=== PATIENT | female | born 1990 | race Caucasian/White ===

== ENCOUNTER 2018-12-01 13:59 | Inpatient (IN) | payer OTHER ==
[~2018-12-01] VITALS: Ht 170.2 cm; Wt 71.3 kg
[2018-12-01 14:53] LABS: BASOPHILS ABSOLUTE AUTO 0.08 K/mm3 (0.00-0.23); BASOPHILS PERCENT AUTO 1 % (0-2); EOSINOPHILS ABSOLUTE AUTO 0.03 K/mm3 (0.00-0.68); EOSINOPHILS PERCENT AUTO 0 % (0-6); Hematocrit 42.7 % (33.0-51.0); Hemoglobin 14.1 g/dL (11.5-16.0); IMMATURE GRAN ABSOLUTE AUTO 0.12 K/mm3 (0.00-0.10); IMMATURE GRAN PERCENT AUTO 1 % (0-1); LYMPHOCYTES ABSOLUTE AUTO 1.13 K/mm3 (0.84-5.20); LYMPHOCYTES PERCENT AUTO 7 % (21-46); MONOCYTES ABSOLUTE AUTO 1.06 K/mm3 (0.16-1.47); MONOCYTES PERCENT AUTO 7 % (4-13); Mean Corpuscular HGB 33.5 pg (26.0-34.0); Mean Corpuscular Volume 101 fL (80-100); Mean Platelet Volume 9.4 fL (9.1-12.4); NEUTROPHILS ABSOLUTE AUTO 13.24 K/mm3 (1.96-9.15); NEUTROPHILS PERCENT AUTO 85 % (41-73); Platelet Count 254 K/mm3 (150-400); RDW Coefficient Variation 12.2 % (11.7-14.2); RDW Standard Deviation 46.5 fL (35.1-46.3); Red Blood Cell Count 4.21 M/mm3 (3.80-5.20); White Blood Cell Count 15.66 K/mm3 (4.00-11.30)
[2018-12-01 15:07] LABS: Beta HCG, Quantitative, Serum <1 mIU/mL (0-3); Ethanol (Alcohol), Blood, Med 7 mg/dL; Magnesium, Blood 1.9 mg/dL (1.6-2.4)
[2018-12-01 15:14] LABS: Base Excess Venous -0.5 mmol/L; Bicarbonate Venous 23.4 mmol/L (24.0-30.0); PCO2 Venous 41.6 mmHg (38-42); PO2 Venous 40.7 mmHg (38-42); pH Blood Venous 7.38 (7.34-7.37)
[2018-12-01 15:28] LABS: Alanine Aminotransfer (ALT/SGP 31 U/L (12-78); Albumin, Blood 3.5 g/dL (3.4-5.0); Albumin/Globulin Ratio 0.9 (0.8-1.8); Alk Phos 68 U/L (50-136); Anion Gap 6 mmol/L (6-16); Aspartate Aminotrans (AST/SGOT 36 U/L (12-37); Bilirubin, Total 0.4 mg/dL (0.1-1.0); Blood Urea Nitrogen 10 mg/dL (8-24); Bun/Creatinine Ratio 19.3 (12.0-20.0); CO2, Blood 21 mmol/L (21-32); Calcium, Blood 8.4 mg/dL (8.5-10.1); Chloride, Blood 110 mmol/L (98-108); Creatinine, Blood 0.52 mg/dL (0.40-1.00); Glomerular Filtration Rate >60 (60-); Glucose, Blood 108 mg/dL (70-99); Potassium, Blood 4.5 mmol/L (3.5-5.5); Sodium, Blood 137 mmol/L (136-145); Total Protein, Blood 7.5 g/dL (6.4-8.2)
[2018-12-01 15:44] LABS: International Normalized Ratio 0.9; Prothrombin Time Results 9.6 Sec (9.7-11.5)
--- NOTE | 2018-12-01 21:20 | NUR ---
START OF SHIFT: REPORT FROM ABHILASH RN. PT AWAKENED EASILY TO RN'S AT BEDSIDE. PT RESPONDED APPROPRIATELY AND VERBALIZED APPRECIATION FOR CARE. VSS. PT DROWSY. MEDICATIONS REVIEWED. SEIZURE PADS IN PLACE. PT LATER WITH MINIMAL ASSIST UP TO [facility] [place]OLERATED WELL. CIWA WHEN UP WITH PT C/O, "SHAKES AND HEARING VOICES", PT MEDICATED WITH LIBRIUM. PT C/O PAIN TO ABDOMEN T/O SHIFT THUS FAR AND HAS BEEN MEDICATED WITH FENTANYL PER ORDERS. PT'S FRIEND TO BEDSIDE AT 2114 AND WAS VERY FRIENDLY AND GENUINELY CONCERNED. PT RESPONDED WELL TO FRIEND AT BEDSIDE AND WAS APPROPRIATE. WILL CONTINUE TO MONITOR. CALL WITHIN REACH.
[2018-12-02 03:23] LABS: BASOPHILS ABSOLUTE AUTO 0.04 K/mm3 (0.00-0.23); BASOPHILS PERCENT AUTO 0 % (0-2); EOSINOPHILS ABSOLUTE AUTO 0.04 K/mm3 (0.00-0.68); EOSINOPHILS PERCENT AUTO 0 % (0-6); IMMATURE GRAN ABSOLUTE AUTO 0.04 K/mm3 (0.00-0.10); IMMATURE GRAN PERCENT AUTO 0 % (0-1); LYMPHOCYTES ABSOLUTE AUTO 1.26 K/mm3 (0.84-5.20); LYMPHOCYTES PERCENT AUTO 11 % (21-46); MONOCYTES ABSOLUTE AUTO 0.93 K/mm3 (0.16-1.47); MONOCYTES PERCENT AUTO 8 % (4-13); Mean Corpuscular HGB 33.4 pg (26.0-34.0); Mean Corpuscular HGB Conc 33.3 g/dL (31.5-36.5); Mean Corpuscular Volume 100 fL (80-100); Mean Platelet Volume 9.2 fL (9.1-12.4); NEUTROPHILS ABSOLUTE AUTO 9.18 K/mm3 (1.96-9.15); NEUTROPHILS PERCENT AUTO 80 % (41-73); Platelet Count 207 K/mm3 (150-400); RDW Coefficient Variation 12.1 % (11.7-14.2); RDW Standard Deviation 44.3 fL (35.1-46.3); Red Blood Cell Count 3.89 M/mm3 (3.80-5.20); White Blood Cell Count 11.49 K/mm3 (4.00-11.30)
[2018-12-02 03:41] LABS: Anion Gap 9 mmol/L (6-16); Blood Urea Nitrogen 8 mg/dL (8-24); Bun/Creatinine Ratio 18.7 (12.0-20.0); CO2, Blood 25 mmol/L (21-32); Calcium, Blood 7.9 mg/dL (8.5-10.1); Chloride, Blood 104 mmol/L (98-108); Creatinine, Blood 0.43 mg/dL (0.40-1.00); Glomerular Filtration Rate >60 (60-); Glucose, Blood 114 mg/dL (70-99); Magnesium, Blood 2.1 mg/dL (1.6-2.4); Phosphorus, Blood 3.4 mg/dL (2.5-4.9); Potassium, Blood 3.6 mmol/L (3.5-5.5); Sodium, Blood 138 mmol/L (136-145)
--- NOTE | 2018-12-02 04:22 | NUR ---
PT AWAKENED AT APPRX 0315 DURING LAB DRAW. PT STATED WAS BEGINNING TO FEEL SHAKEY AND HEARING THINGS AGAIN. CIWA APPRX 10. PT ACTUALLY ABLE TO ADD SERIAL NUMBERS AND RECALL DATE. PT MEDICATED WITH LIBRIUM 25mg INSTEAD OF 50. PT CURRENTLY SLEEPING QUIETLY, VSS.
--- NOTE | 2018-12-02 07:27 | NUR ---
ASSUMED CARE REPORT FROM SVETA Oneill RN. PATIENT A & O ASSISTED TO TOILET FOR UNMEASURED VOID. SLIGHTLY UNSTEADY, BUT AMBULATED WITH VERY LITTLE ASSISTANCE. IS REQUESTING ATIVAN FOR TREMORS AND PAIN MED FOR 7/10 STOMACH PAIN. WASHED HER FACE AND HANDS, BUT DECLINED TO BRUSH HER TEETH AT THIS TIME.
--- NOTE | 2018-12-02 07:53 | NUR ---
MD VISIT DR. LUIS IN
--- NOTE | 2018-12-02 08:00 | NUR ---
FENTANYL 25 MCG IV GIVEN FOR 8/10 STOMACH PAIN. LIBRIUM FOR CIWA 7. NICOTINE PATCH PLACED RIGHT SHOULDER WITH INSTRUCTIONS NOT TO SMOKE WHILE IN PLACE AND PROPER DISPOSAL WHEN TAKEN OFF. WILL CONTINUE TO MONITOR FOR PAIN AND CIWA SYMPTOMS
--- NOTE | 2018-12-02 08:10 | NUR ---
STATUS CHANGED TO MED/NO TELE
--- NOTE | 2018-12-02 09:23 | NUR ---
REPORT GIVEN TO GEOVANY Guaman RN. PT BEING TX'D TO 361
--- NOTE | 2018-12-02 09:40 | NUR ---
PT TO ROOM [facility] ICU. QUITE PLEASANT COOP A/O. SOME PAIN IN FLANK. IS NPO FOR PANCREATITIS. WATCHING CWA. WAS MEDICATED PRIOR TO COMING. WILL CONTINUE TO MONITOR. BED IN LOW POSITION, CALL LITE IN REACH. CALLS APPROP
--- NOTE | 2018-12-02 13:51 | NUR ---
PT C/O PAIN AND NEEDING LIBRIUM. LIGHT SHAKES, SLIGHT BEEDS SWEAT ON FOREHEAD, HALUCINATIONS BOTH AUDITORY AND VISUAL. ADDS NUMBERS WELL. MEDICATED. PT MORE RELAXED AFTER FENTANYL.
--- NOTE | 2018-12-02 18:30 | NUR ---
PT QUITE PLEASANT COOP A/O. SOME PAIN ABD. CONTROLLED WITH AVAIL MEDS. RUNNING 8-10 CWA. MED PER EMAR. HAD SOME FRIENDS COME IN TODAY. SOME TREMORS REMAIN. LIGHT SWEATS. SOME HALLUCINATIONS. MANAGED WITH AVAIL MEDS. EMCOURAGED TO CONTINUE WITH ETOH RECOVERY AND STAY OFF ETOH. STATES MAY BE ABLE TO GET TO REHAB AND MOVE FOREWARD IN LIVE/ HAS DOG SHE CARES FOR AND WANTS TO BE THERE FOR. BED IN LOW POSITION, CALL LITE IN REACH, CALLS APPROP
[2018-12-03 05:00] LABS: BASOPHILS ABSOLUTE AUTO 0.06 K/mm3 (0.00-0.23); BASOPHILS PERCENT AUTO 1 % (0-2); EOSINOPHILS ABSOLUTE AUTO 0.13 K/mm3 (0.00-0.68); EOSINOPHILS PERCENT AUTO 2 % (0-6); Hematocrit 36.2 % (33.0-51.0); Hemoglobin 11.7 g/dL (11.5-16.0); IMMATURE GRAN ABSOLUTE AUTO 0.03 K/mm3 (0.00-0.10); IMMATURE GRAN PERCENT AUTO 0 % (0-1); LYMPHOCYTES ABSOLUTE AUTO 1.36 K/mm3 (0.84-5.20); LYMPHOCYTES PERCENT AUTO 18 % (21-46); MONOCYTES ABSOLUTE AUTO 0.83 K/mm3 (0.16-1.47); MONOCYTES PERCENT AUTO 11 % (4-13); Mean Corpuscular HGB 32.4 pg (26.0-34.0); Mean Corpuscular HGB Conc 32.3 g/dL (31.5-36.5); Mean Corpuscular Volume 100 fL (80-100); Mean Platelet Volume 9.4 fL (9.1-12.4); NEUTROPHILS ABSOLUTE AUTO 5.08 K/mm3 (1.96-9.15); NEUTROPHILS PERCENT AUTO 68 % (41-73); Platelet Count 189 K/mm3 (150-400); RDW Coefficient Variation 12.1 % (11.7-14.2); RDW Standard Deviation 44.6 fL (35.1-46.3); Red Blood Cell Count 3.61 M/mm3 (3.80-5.20); White Blood Cell Count 7.49 K/mm3 (4.00-11.30)
[2018-12-03 05:50] LABS: Anion Gap 6 mmol/L (6-16); Blood Urea Nitrogen 4 mg/dL (8-24); Bun/Creatinine Ratio 8.8 (12.0-20.0); CO2, Blood 25 mmol/L (21-32); Chloride, Blood 110 mmol/L (98-108); Creatinine, Blood 0.46 mg/dL (0.40-1.00); Glomerular Filtration Rate >60 (60-); Glucose, Blood 76 mg/dL (70-99); Potassium, Blood 3.3 mmol/L (3.5-5.5); Sodium, Blood 141 mmol/L (136-145)
--- NOTE | 2018-12-03 06:29 | NUR ---
PT without seizure activity. Continues with acute abd pain from pancreatitis decreased by fentanyl 25 mcg Q 4 hours. PT medicated multiple times with librium for ETOH detoxscore 12 or 13. Hx of drinking 1/2 gallon vodka daily and prior treatment for alcoholism. Counseled on need for cessation and also encouraged tobacco cessation. PT expresses desire for inpt ETOH rehab on discharge. Will put in referral about request for inpt tx.
--- NOTE | 2018-12-03 17:18 | NUR ---
SHIFT SUMMARY NO ACUTE CHANGES. PATIENT MEDICATED X2 FOR PAIN AND X2 FOR WITHDRAWAL SYMPTOMS. PATIENT DENIES NAUSEA AND SHORTNESS OF BREATH. TOLERATING CLEAR LIQUID DIET WELL. UP SBA TO BR. CALL LIGHT IN REACH.
--- NOTE | 2018-12-04 02:13 | NUR ---
PT REQUESTED AND RECIEVED PAIN MEDS AND LIBRIUM FOR WITHDRAWALS. PT REPORTS ABD PAIN OF AN 8, HOWEVER, HER FACIAL NUMBER LOOKS LIKE A 1 OR A 0. NO GAURDING, GRIMACING OR PHYSICAL SIGNS OF PAIN. NO VISIBLE SWEATING, TREMORS, ANXIETY, NAUSEA, OR AGITATION. HOWEVER, WHEN ASKED PT WILL REPORT THAT SHE HAS EVERY SYMPTOM THAT YOU ASK WELL SAY THAT SHE HAS A HEADACHE THAT SHE DID NOT REPORT WHEN ASKED WERE HER PAIN WAS FOR THE DOCUMENTATION OF THE FENTANYL. I DOCUMENTED WHAT I COULD PHYSICALLY SEE OR NOT SEE BUT WITH THE HALLUCINATIONS I REPORTED WHAT THE PATIENT STATED. PT ALSO ASKS FOR BOTH OF THESE MEDS PRETTY MUCH EXACTLY EVERY 4 HOURS JUST ABOUT TO THE MINUTE. WILL UPDATE PRIMARY RN AND THEY WILL CONTINUE TO MONITOR. NO OTHER APPARENT SIGNS OF DISTRESS. DENIES NEED FOR ANYTHING ELSE. CALL LIGHT IS IN REACH.
--- NOTE | 2018-12-04 04:17 | NUR ---
SHIFT SUMMARY PT HAS RESTED OFF AND ON THIS SHIFT. SHE HAS HAD VISITORS COME IN THIS SHIFT. PT IS WATCHING TV AND ON HER PHONE ALOT OF THE TIME. SHE REPORTS SHE STILL HAS ABD PAIN. REPORTS 8 (0-10). FACES SCALE ABOUT 1-2. SHE REQUESTS IV FENTANYL ABOUT Q4 HOURS IT IS SCHEDULED. PT STATES THAT SHE FEELS HER DIET SHOULD BE ADVANCED FROM CLEAR LIQUDS SHE FEELS SHE HAS TOLERATED THE CLEAR LIQUIDS WELL. PT REPORTS ABD TENDERNESS THROUGHOUT BUT PRIMARILY TO HER LUQ. THERE WAS NO GRIMACING OR GUARDING PRESENT WHEN PALPATING HER ABD. BOWEL TONES HYPERACTIVE X4, ABD SOFT. SHE DENIES BM OR PASSING GAS. SHE STATES LAST BM WAS BEFORE ADMISSION. SHE REPORTS MILD NAUSEA, BUT STATES "NOT BAD" AND HAS NOT REQUESTED ANYTHING FOR IT. CIWA'S ARE STILL BEING PERFORMED ON PT SHE IS REQUESTING LIBRIUM ABOUT Q 4 HOURS WHILE AWAKE. SUBJECTIVELY PT REPORTS SHE HAS EVERY SYMPTOM ON THE CIWA SCALE WHEN ASKED, WHICH IN TURN GAVE A HIGHER RATING OF 16 ON MY FIRST CIWA ASSESSMENT. HOWEVER, OBJECTIVELY PT PRESENTS WITH MILDER SYMPTOMS ON SUBQUESENT ASSESSMENTS. NS INFUSING AT 150 ML/HR. VITALS STABLE. PT INDEPENENT AND AMBULATORY IN THE ROOM. A/OX4, PLESANT AND COOPERATIVE WITH CARE. ASSESSMENT HAS REMAINED UNCHANGED. WILL CONTINUE TO MONITOR AND REPORT TO ONCOMING RN.
--- NOTE | 2018-12-04 15:51 | NUR ---
SHIFT SUMMARY NO ACUTE CHANGES. PATIENT MEDICATED X 2 FOR PAIN AND X1 FOR WITHDRAWAL SYMPTOMS. PATIENT DIET ADVANCED TO FULL LIQUID, TOLERATING WELL. PATIENT TRANSITIONING TO ORAL PAIN MEDICATIONS. UP SBA TO BR. KPAD FOR COMFORT. CALL LIGHT IN REACH.
--- NOTE | 2018-12-05 04:16 | NUR ---
SHIFT SUMMARY PT HAS TOLERATED FULL LIQUDS. SHE CONTINUES TO DENY BM SINCE BEFORE HER ADMISSION. ABD SOFT, BOWEL TONES HYPERACTIVE. TENDERNESS WITH PALPATION X4 QUADRANTS. PT HAS TRANSITIONED TO PO PAIN MEDICATION WITH GOOD EFFECT. MEDICATED FOR ETOH WITHDRAWL WITH LIBRIUM ABOUT Q4HR. PT PLESANT WITH CARE. IVF INFUSING AT 150 ML/HR. NO CHANGES OVERNIGHT. WILL CONTINUE TO MONITOR AND REPORT TO ONCOMING RN.
[2018-12-05 04:48] LABS: BASOPHILS ABSOLUTE AUTO 0.07 K/mm3 (0.00-0.23); BASOPHILS PERCENT AUTO 1 % (0-2); EOSINOPHILS ABSOLUTE AUTO 0.16 K/mm3 (0.00-0.68); EOSINOPHILS PERCENT AUTO 2 % (0-6); Hematocrit 35.9 % (33.0-51.0); Hemoglobin 11.9 g/dL (11.5-16.0); IMMATURE GRAN ABSOLUTE AUTO 0.03 K/mm3 (0.00-0.10); IMMATURE GRAN PERCENT AUTO 0 % (0-1); LYMPHOCYTES ABSOLUTE AUTO 1.71 K/mm3 (0.84-5.20); LYMPHOCYTES PERCENT AUTO 26 % (21-46); MONOCYTES PERCENT AUTO 11 % (4-13); Mean Corpuscular HGB 32.2 pg (26.0-34.0); Mean Corpuscular HGB Conc 33.1 g/dL (31.5-36.5); Mean Platelet Volume 9.9 fL (9.1-12.4); NEUTROPHILS ABSOLUTE AUTO 4.01 K/mm3 (1.96-9.15); NEUTROPHILS PERCENT AUTO 60 % (41-73); Platelet Count 222 K/mm3 (150-400); RDW Coefficient Variation 11.8 % (11.7-14.2); Red Blood Cell Count 3.69 M/mm3 (3.80-5.20); White Blood Cell Count 6.68 K/mm3 (4.00-11.30)
[2018-12-05 04:54] LABS: Mean Corpuscular Volume 97 fL (80-100)
[2018-12-05 05:05] LABS: Anion Gap 9 mmol/L (6-16); Blood Urea Nitrogen 4 mg/dL (8-24); Bun/Creatinine Ratio 8.4 (12.0-20.0); CO2, Blood 23 mmol/L (21-32); Calcium, Blood 8.5 mg/dL (8.5-10.1); Chloride, Blood 110 mmol/L (98-108); Creatinine, Blood 0.48 mg/dL (0.40-1.00); Glomerular Filtration Rate >60 (60-); Glucose, Blood 103 mg/dL (70-99); Potassium, Blood 3.7 mmol/L (3.5-5.5); Sodium, Blood 142 mmol/L (136-145)
--- NOTE | 2018-12-05 17:19 | NUR ---
SUMMARY: NO ACUTE CHANGE TODAY. PT VSS, A/O.DIET ADVANCED AND PT ABLE TO TOLERATE REGULAR LUNCH, ALTHOUGH PT DID REPORT ABD PAIN AFTER EATING, NO NAUSEA . ETOH WITHDRAWAL SYMPTOMS ARE MINIMAL, CWIA SCORE OF 5. PT HAS BEEN INDEPENDENT IN ROOM. NO SAFETY CONCERNS AT THIS TIME.
--- NOTE | 2018-12-06 02:52 | NUR ---
assumed care of PT after report from Elizabeth TURPIN. I have cared for this PT in the past. PT continues on alcohol withdrawl assessment and she continues to have pancreatic pain with PRN rx to treat.
--- NOTE | 2018-12-06 03:12 | NUR ---
SHIFT SUMMARY PT ADMITTED FOR ALCOHOL WITHDRAWL SEIZURE. FULL CODE. REGULAR DIET. LOVENOX FOR DVT PROPHYLAXIS. NS RUNNING AT 150 MLS/HR, CALL TO HOSPITALIST WHO STATED COULD DC FLUIDS FOLLOWING COMPLETION OF CURRENT BAG PT IS TOLLERATING ORAL INTAKE AND REGULAR DIET WELL. CIWA SCORE OF 7. PT WITH NOTED PANCREATITIS THAT APPEARS TO BE RESOLVING. PT WITH C/O PAIN X2, AND ASKED FOR LIBRIUM MULTIPLE TIMES BUT ADMINISTERED X2. PT APPEARS TO BE PRESENTING WITH DRUG SEEKING BEHAVIORS STATING SYMPTOMS THAT DO NOT APPEAR TO BE PRESENT. PT PREVIOUSLY DRINKING 1L OF VODKA DAILY. TAKES MEDICATIONS WHOLE. PT IS INDEPENDENT IN ROOM. 20G IV TO R AC. POSSIBLE DISCHARGE TODAY. PT APPEARS TO BE SLEEPING COMFORTABLY AT THIS TIME WITH NO APPARENT SIGNS OF ACUTE DISTRESS. ABLE TO MAKE NEEDS KNOWN AND CALL LIGHT IN REACH.
--- NOTE | 2018-12-06 05:35 | NUR ---
PT advanced togen diet, tolerating with complkaints of constipation and increased pain with oral intake., Takes oral fluids well and voids large amts of clear light urine. No s/sx of withdrawl seizures, denies acute distress. had librium 50 mg and oxycodone 5 mg for co pain and ETOH detox x 2 on this shift prior to my assumption of care. Discussed [facility] phone number on DC and need for ETOH cessation as well as pancreatitis related to ETOH use acute and chronic. PT expresses desire to go to inpt treatment on dc for chemical dependency with stated 1/2 gallon of vodka use daily. plesant but has completed treatment before and relapsed by 3 months sobriety.
[2018-12-06] MEDS ORDERED: CHLO25 PO (16:39)
[2018-12-06] MEDS ORDERED: OXYC5 PO (16:39)
--- NOTE | 2018-12-06 17:42 | NUR ---
review d'c w/patient given number and address for [facility] in [place]. given education material on; alcohol abuse, pancreatitis, d.t's and meds of librium and oxycodone. has ride to [facility] in [place]. answer all questions. in w/c to pov
== END 2018-12-06 17:43 | disposition home or self-care (01) | DRG 439 ==
LOC: ER 13:59 → ICUW 16:22 → MEDS 12-02 09:33 → ENPENDDIS 12-06 15:59 → MEDS 12-06 17:43
PROVIDERS: Emergency Medicine; Internal Medicine; ADMIT Internal Medicine
DX: K85.90 Acute pancreatitis without necrosis or infection, unspecified (principal); F10.239 Alcohol dependence with withdrawal, unspecified; K86.1 Other chronic pancreatitis; E87.6 Hypokalemia; F17.290 Nicotine dependence, other tobacco product, uncomplicated
CPT/HCPCS: 36415; 74150; 80048; 80053; 82803; 83690; 83735; 84100; 84702; 85025; 85610; 94640; 94760; 96361; 96365; 96375; 99285-25; A9270; G0480; J1650; J2060; J2405; J3010; J3411; J3475; J7030; J7042; J7120